=== PATIENT | male | born 1960 | race Hispanic/Latino ===

== ENCOUNTER → 2020-07-15 | Outpatient (CLI) | payer OTHER | END | disposition home or self-care (01) | LOC: SHCH 11:19 | PROVIDERS: ATTEND Internal Medicine Cardiovascular Disease | DX: R00.2 Palpitations (principal); R06.09 Other forms of dyspnea | CPT/HCPCS: 93306; 93356 ==

== ENCOUNTER → 2023-06-14 | Outpatient (CLI) | payer OTHER | END | disposition home or self-care (01) | LOC: RAH 08:53 | PROVIDERS: ATTEND Internal Medicine | DX: Q39.6 Congenital diverticulum of esophagus (principal); R14.2 Eructation; R12 Heartburn | CPT/HCPCS: 74240 ==

== ENCOUNTER → 2023-09-27 | Outpatient (CLI) | payer OTHER | END | disposition home or self-care (01) | LOC: RAH 11:00 | PROVIDERS: ATTEND Internal Medicine Gastroenterology | DX: R14.0 Abdominal distension (gaseous) (principal); R12 Heartburn; R14.2 Eructation | CPT/HCPCS: 78264; A9541 ==

== ENCOUNTER → 2024-05-11 | Outpatient (CLI) | payer MEDICARE ==
[2024-05-11] MEDS: REGADENOSON 0.4 MG/5 ML PF SYG IVP ONE (11:47)
== END | disposition home or self-care (01) ==
LOC: SHCH 07:41
PROVIDERS: ATTEND Internal Medicine Cardiovascular Disease
DX: R06.09 Other forms of dyspnea (principal); I20.9 Angina pectoris, unspecified
CPT/HCPCS: 78452; 93017; J2785; A9500 ×2

== ENCOUNTER 2024-08-05 06:35 | Emergency (ER) | payer MEDICARE ==
[~2024-08-05] VITALS: Ht 175.3 cm; Wt 83.9 kg
[2024-08-05 06:57] LABS: BASOPHILS # (AUTO) 0.02 K/uL (0.00-0.20); BASOPHILS % (AUTO) 0.3 % (0.0-5.0); EOSINOPHILS # (AUTO) 0.21 K/uL (0.00-0.70); HEMATOCRIT 44.5 % (42-54); IMMATURE GRANULOCYTE ABSOLUTE 0.02 K/uL (0-1); LYMPHOCYTES # (AUTO) 2.4 K/uL (1.0-4.8); LYMPHOCYTES % (AUTO) 33.9 % (21.0-51.0); MEAN CORPUSCULAR HEMOGLOBIN 29.3 pg (27.0-33.0); MEAN CORPUSCULAR HGB CONC 35.3 g/dL (32.0-36.0); MEAN CORPUSCULAR VOLUME 83.2 fL (79-99); MONOCYTES # (AUTO) 0.7 K/uL (0.1-1.0); MONOCYTES % (AUTO) 9.8 % (3.0-13.0); NEUTROPHILS # (AUTO) 3.8 K/uL (1.8-7.7); NEUTROPHILS % (AUTO) 52.7 % (40.0-77.0); PLATELET COUNT (AUTO) 193 K/uL (130-400); RED BLOOD CELL COUNT(AUTO) 5.35 MIL/uL (4.50-6.20); RED CELL DISTRIBUTION WIDTH 13.2 % (11.0-15.5); WHITE BLOOD COUNT (AUTO) 7.1 K/uL (4.8-10.8)
[2024-08-05 07:24] LABS: CREATININE 0.9 mg/dL (0.5-1.3); POTASSIUM 3.7 mmol/L (3.5-5.1)
--- NOTE | 2024-08-05 07:32 | ERN ---
General Chief Complaint: Chest Pain Stated Complaint: CHEST PAIN Time Seen by MD: 07:12 History of Present Illness Initial Comments 63-year-old male who presents for chest pain. Patient reports Tuesday, approximately 48 hours ago noticed a pain in the center of his chest. It does not radiate. He reports that it increases with certain movements and positioning. He does report feeling some dyspnea with the takes deep respirations. No cough or congestion. He reports that he was lifting something heavy on Tuesday and thinks it may be musculoskeletal. Patient reports that since then the pain has been worsening. It is nonexertional. He reports that he had a nuclear stress test with Dr. Sams a couple of months ago, which the patient reports was unremarkable. Allergies: Coded Allergies: No Known Drug Allergies (Unverified Allergy, Unknown, 08/05/24) Past Medical History Past Medical History: High Cholesterol Past Surgical History: Other Surgical History Other: BILATERAL INGUINAL HERNIA REPAIR ROS Dictation CONSTITUTIONAL: No chills, no fever, no weakness, no diaphoresis, no malaise. HEAD/FACE: No signs of trauma. EENT: No eye pain, no blurred vision, no tearing, no double vision, no ear pain, no ear discharge, no nose pain, no nasal congestion, no throat pain, no throat swelling, no mouth pain. RESPIRATORY: No cough, no orthopnea, no SOB, no stridor, no wheezing. CARDIOVASCULAR: Central chest pain GASTROINTESTINAL/ABDOMINAL: No abdominal pain, no constipation, no diarrhea, no nausea, no vomiting. GENITOURINARY: No abnormal discharge, no dysuria, no frequent urination, no hematuria. No complaints of pain in the genitals. MUSCULOSKELETAL: No back pain, no gout, no joint pain, no joint swelling, no muscle pain, no muscle stiffness, no neck pain. INTEGUMENTARY: No change in color, no change in hair/nails, no dryness, no lesion, no lumps, no rash. NEUROLOGICAL/PSYCH: No anxiety, not depressed, no emotional problem, no headache, no numbness, no pre-existing deficit, no history of seizures, no tremors, no weakness. HEMATOLOGIC/LYMPHATIC: Not anemic, no history of blood clots, no apparent bleeding, no bruising, glands not swollen. All Systems Negative, Except as Noted. Physical Exam Physical Exam Dictation VITAL SIGNS: Reviewed. GENERAL APPEARANCE: Alert, oriented x3, no acute distress. HEAD AND FACE: Non-traumatic. EYES: PERRL, pink conjunctivas, eyelid no trauma, anterior chamber clear. EARS: Pinnas intact and no signs of trauma or erythema. Ear canals clear and no discharge. TMs no erythema. NOSE: No discharge, no bleeding. OROPHARYNX: Mouth normal, teeth no caries, tongue pink. Pharynx clear, no erythema. Tonsils no exudates, no abscesses noted. Mucous membrane moist. NECK: Supple, non-tender, no thyromegaly, no masses, no JVD, no bruits. BREAST: Deferred. CHEST: No tenderness, no crepitus, no paradoxical movement, no retractions. LUNGS: Clear, well-ventilated, symmetric, no rales, no wheezing, no rhonchi, no stridor, good breath sounds bilaterally. HEART: Regular rate, regular rhythm, no murmur, no gallops. VASCULAR: No peripheral edema. ABDOMEN: Soft, positive bowel sounds, nondistended, no guarding, nontender, no rebound, no masses no hepatomegaly, no splenomegaly, no Moreno's sign, no hernias. RECTAL: Deferred. GENITAL: Deferred. NEUROLOGICAL: Normal speech, gross motor function intact, gross sensory function intact. MUSCULOSKELETAL: Neck nontender, full range of motion, back nontender, full range of motion. EXTREMITIES: Nontender, full range of motion. SKIN: Color pink, dry, no turgor, no rash, no lacerations, no abrasions, no contusions. LYMPHATICS: Deferred. Results Laboratory and Microbiology Lab and Micro Result Laboratory Tests Test 08/05/24 06:45 08/05/24 07:16 08/05/24 09:35 White Blood Count 7.1 K/uL (4.8-10.8) Red Blood Count 5.35 MIL/uL (4.50-6.20) Hemoglobin 15.7 g/dL (14.0-18.0) Hematocrit 44.5 % (42-54) Mean Corpuscular Volume 83.2 fL (79-99) Mean Corpuscular Hemoglobin 29.3 pg (27.0-33.0) Mean Corpuscular Hemoglobin Concent 35.3 g/dL (32.0-36.0) Red Cell Distribution Width 13.2 % (11.0-15.5) Platelet Count 193 K/uL (130-400) Mean Platelet Volume 11.0 fL (7.5-10.5) H Immature Granulocyte % (Auto) 0.3 % (0-1) Neutrophils (%) (Auto) 52.7 % (40.0-77.0) Lymphocytes (%) (Auto) 33.9 % (21.0-51.0) Monocytes (%) (Auto) 9.8 % (3.0-13.0) Eosinophils (%) (Auto) 3.0 % (0.0-8.0) Basophils (%) (Auto) 0.3 % (0.0-5.0) Neutrophils # (Auto) 3.8 K/uL (1.8-7.7) Lymphocytes # (Auto) 2.4 K/uL (1.0-4.8) Monocytes # (Auto) 0.7 K/uL (0.1-1.0) Eosinophils # (Auto) 0.21 K/uL (0.00-0.70) Basophils # (Auto) 0.02 K/uL (0.00-0.20) Absolute Immature Granulocyte (auto 0.02 K/uL (0-1) Nucleated Red Blood Cells 0.0 % (0.0-0.19) Sodium Level 141 mmol/L (136-145) Potassium Level 3.7 mmol/L (3.5-5.1) Chloride Level 104 mmol/L (101-111) Carbon Dioxide Level 30 mmol/L (21-32) Blood Urea Nitrogen 22 mg/dL (7-18) H Creatinine 0.9 mg/dL (0.5-1.3) Glomerular Filtration Rate Calc 95 mL/min (>90) Random Glucose 108 mg/dL (70-105) H Total Calcium 8.8 mg/dL (8.5-10.1) Total Creatine Kinase 60 U/L (21-232) # Troponin I High Sensitivity 9 ng/L (4-75) 10 ng/L (4-75) B-Type Natriuretic Peptide 70 pg/mL (0-100) Urine Color YELLOW (YELLOW) Urine Appearance CLEAR (CLEAR) Urine pH 6.0 (5.0-8.0) Urine Specific [place] 1.031 (1.001-1.031) Urine Protein 20 mg/dL (NEGATIVE) H Urine Glucose (UA) NEGATIVE mg/dL (NEGATIVE) Urine Ketones NEGATIVE mg/dL (NEGATIVE) Urine Occult Blood NEGATIVE (NEGATIVE) Urine Nitrate NEGATIVE (NEGATIVE) Urine Bilirubin NEGATIVE mg/dL (NEGATIVE) Urine Urobilinogen 3 mg/dL (0.2-1.0) H Urine Leukocyte Esterase NEGATIVE Eri/uL Urine RBC 0-1 /HPF (0-1) Urine WBC 0-1 /HPF (0-1) Urine Bacteria None /HPF (None Seen) D-Dimer Quantitative (PE/DVT) 477 ng/mL (0-500) Total Bilirubin 0.8 mg/dL (0.2-1.0) Direct Bilirubin 0.2 mg/dL (0.0-0.3) Aspartate Amino Transf (AST/SGOT) 24 U/L (10-37) Alanine Aminotransferase (ALT/SGPT) 17 U/L (12-78) Alkaline Phosphatase 76 U/L (50-136) C-Reactive Protein, Quantitative < 0.50 mg/L (0.5-3.0) L Total Protein 6.6 g/dL (6.0-8.3) Albumin 3.6 g/dL (3.5-5.0) Lipase 22 U/L (16-77) MDM CC: Chest pain Historian: Patient Comorbidities: DLD Ddx: ACS, PE, PTX, tampanode, etc. Vital signs: Mild hypertension otherwise stable remained stable here in the ER. Clinical exam is unremarkable. No clinical signs of heart failure swelling. Normal heart tones. EKG: Sinus rhythm rate of 76, normal axis, good R-wave progression, intervals are stable no STEMI. Independently interpreted by me. Labs (independently ordered and interpreted by me): Normal CBC, D-dimer within normal limits Basic metabolic panel is normal, liver enzymes normal, CK normal, troponin x2 normal, CRP normal, BNP normal, lipase normal. Urinalysis unremarkable. Chest x-ray per my independent interpretation shows no acute abnormalities. Patient is still continues with some chest discomfort, I did get a CT scan of the chest without contrast. It shows some calcified pericardium and gallstones but otherwise unremarkable. On re-evaluation the patient is pain-free. I did discuss with the patient that he has a heart score of three with two normal troponins, I have very low suspicion for ACS at this time in his symptoms are most consistent with a musculoskeletal type pain or noncardiac chest pain, but that said I did offer the patient admission for cardiac workup. We decided that since the patient had a nuclear stress test less than two months ago has two more troponins and normal EKG that he is safe for outpatient workup. I will recommend an NSAID as an outpatient and PCP or cardiology follow up. Patient will return to the emergency department as needed. ED Course Orders Procedure Category Date Status Time 12 Lead Ekg Tracing- EKG 08/05/24 Complete Technical 06:43 Vital Signs Per CPOE 08/05/24 Transmitted Routine 06:44 B-Type Natriuretic LAB 08/05/24 Complete Peptide 06:44 Chest 1vw RAD 08/05/24 Resulted 06:44 Oxygen By Nc/Pulse Ox CPOE 08/05/24 Transmitted 06:44 Maintain Iv CPOE 08/05/24 Transmitted 06:44 Iv Insertion CPOE 08/05/24 Transmitted 06:44 Cardiac Monitoring CPOE 08/05/24 Transmitted 06:44 Pulse Oximetry With CPOE 08/05/24 Transmitted Vs And Prn 06:44 Cbc With Differential LAB 08/05/24 Complete 06:44 Activity: Br W/Brp CPOE 08/05/24 Transmitted With Assist 06:44 Creatine Kinase, Total LAB 08/05/24 Complete 06:44 Troponin I High LAB 08/05/24 Complete Sensitivity 06:44 Urinalysis Profile LAB 08/05/24 Complete 06:44 Basic Metabolic Panel LAB 08/05/24 Complete 06:44 D-Dimer LAB 08/05/24 Complete 07:26 Crp Quantitative LAB 08/05/24 Complete 07:26 Hepatic Function Panel LAB 08/05/24 Complete 07:26 Lipase LAB 08/05/24 Complete 07:26 Troponin I High LAB 08/05/24 Complete Sensitivity 08:22 Ct Chest W/O Contrast CT 08/05/24 Resulted 10:18 Vital Signs Date Time Temp Pulse Resp B/P (MAP) Pulse Ox O2 Delivery O2 Flow Rate FiO2 08/05/24 12:47 98.2 65 17 130/73 99 Room Air* 0 08/05/24 11:18 98.2 62 16 135/74 98 Room Air* 0 08/05/24 07:45 98.6 71 14 128/71 98 Room Air* 0 08/05/24 06:50 98.6 76 16 154/86 98 Room Air* 0 21 08/05/24 06:37 99.0 74 16 156/92 99 Room Air 0 DX & DISP Disposition: Discharge Departure Impression: Primary Impression: Chest pain, non-cardiac Condition: Stable Additional Instructions: There are no concerning findings on your workup here today. Your vital signs has been stable here in the emergency department. The EKG is normal. The chest x-ray is normal. The CT scan shows calcification of the pericardium. That this is chronic based on previous imaging. This is unlikely related to your symptoms. This is often benign. You also have a gallstone in her gallbladder. If you have any biliary colic or gallstone pain, you can follow up with her primary doctor or return to the emergency department. Your blood work (CBC with differential, D-dimer, metabolic panel, liver enzymes, CK, troponin x2, BNP, lipase, urinalysis) is normal. As we discussed, your symptoms are likely musculoskeletal in nature. I recommend you take an NSAIDs such as naproxen or ibuprofen as needed for pain or discomfort. 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 Referrals: HEATHER LEWIS MD (PCP) ANASTASIA HUTCHINS DO August 05, 2024 07:32
[2024-08-05 07:33] LABS: B-TYPE NATRIURETIC PEPTIDE 70 pg/mL (0-100)
[2024-08-05 07:39] LABS: APPEARANCE,URINE CLEAR (CLEAR); BILIRUBIN,URINE NEGATIVE (NEGATIVE); COLOR,URINE YELLOW (YELLOW); GLUCOSE, URINE (UA) NEGATIVE (NEGATIVE); KETONES,URINE NEGATIVE (NEGATIVE); LEUKOCYTE ESTERASE ,URINE NEGATIVE Leu/uL (NEGATIVE); NITRATE,URINE NEGATIVE (NEGATIVE); OCCULT BLOOD,URINE NEGATIVE (NEGATIVE); PROTEIN,URINE 20 mg/dL (NEGATIVE); UROBILINOGEN,URINE 3 mg/dL (0.2-1.0)
[2024-08-05 07:44] LABS: ADD UA MICROSCOPIC YES
[2024-08-05 07:45] LABS: MUCUS,URINE FEW LPF (None Seen); RBC,URINE 0-1 /HPF (0-1); WBC,URINE 0-1 /HPF (0-1)
--- NOTE | 2024-08-05 08:06 | HMCIMG ---
PORTABLE CHEST RADIOGRAPH INDICATION: CHEST PAIN COMPARISON: 12/07/2016 FINDINGS: shingle carrier leads overlie the field of view. Heart size is normal. The pulmonary vascularity and randy appear normal. No abnormal pulmonary parenchymal opacity or consolidation identified. No significant pleural effusion noted. No pneumothorax detected. IMPRESSION: No radiographic evidence for any acute cardiopulmonary process.
[2024-08-05 09:53] LABS: ALANINE AMINOTRANSFERASE 17 U/L (12-78); ALBUMIN 3.6 g/dL (3.5-5.0); ASPARTATE AMINOTRANSFERASE 24 U/L (10-37); BILIRUBIN,DIRECT 0.2 mg/dL (0.0-0.3); BILIRUBIN,TOTAL 0.8 mg/dL (0.2-1.0); TOTAL PROTEIN, SERUM 6.6 g/dL (6.0-8.3)
--- NOTE | 2024-08-05 11:19 | HMCIMG ---
CT CHEST WITHOUT CONTRAST INDICATION: Central chest tenderness TECHNIQUE: Routine axial images using 5 mm slice thickness were acquired from the lung apices to the bases without the administration of IV contrast.Coronal and sagittal reformatted images acquired for interpretation. CT was performed with one or more of the following dose reduction techniques: Automated exposure control, adjustment of the mA and/or kV according to patient size, or use of iterative reconstruction technique. COMPARISON: None FINDINGS: The heart size is normal. No pericardial effusion noted. Extensive pericardial calcifications. The visualized great vessels and thoracic aorta are within normal limits. The trachea and airways are patent. No evidence for pulmonary nodule, consolidation, cavitary lesion, or other abnormal pulmonary parenchymal opacity. No axillary, hilar, or mediastinal lymphadenopathy. No pleural effusion or pneumothorax identified. 2.0 cm peripherally having calcific gallstone. Intact sternum and ribs. IMPRESSION: Extensive pericardial calcifications, without pericardial fluid or evidence for any other acute cardiopulmonary process, and intact sternum and ribs. Cholelithiasis
[2024-08-05 12:47] VITALS: BP 130/73; PULSE 65; RESP 17; TEMP 98.3; O2SAT 99
--- NOTE | 2024-08-05 14:15 | EKG ---
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
== END 2024-08-05 12:57 | disposition home or self-care (01) ==
LOC: EDH 06:35
DX: R07.89 Other chest pain (principal); E78.00 Pure hypercholesterolemia, unspecified
CPT/HCPCS: 36415; 71045; 71250; 80048; 80076; 81001; 82550; 83690; 83880; 84484; 85025; 85378; 86140; 93005; 99285

== ENCOUNTER → 2024-11-28 | Outpatient (CLI) | payer MEDICARE ==
[~2024-11-28] MED LIST: GADOTERATE MEGLUMINE 10 MMOL/20 ML VIAL IV ONE
--- NOTE | 2024-11-29 10:48 | HMCIMG ---
EXAM: MR Brain and IAC without and with IV Contrast. CLINICAL HISTORY: Bilateral hearing loss. TECHNIQUE: Multiplanar multi-sequence MRI of the brain and IAC without and with IV Contrast. COMPARISON: None provided. FINDINGS: BRAIN: No abnormal parenchymal signal is present. No acute intracranial abnormality, specifically cortical infarction, hemorrhage, mass, or mass effect. No hydrocephalus. No abnormal extra-axial fluid collection is present. The marrow signal within the skull base and calvarium is intact. The paranasal sinuses are clear. IAC: The cerebellopontine angles are CSF-filled. The internal auditory canal bilaterally is normal in signal. The seventh and eighth nerve bundles are intact. A vascular loop is seen in close contact with the left 7th and 8th nerve bundles within the internal auditory canal. Inner ear structures are normal. Mastoid air cells demonstrate no abnormal signal. IMPRESSION: No acute intracranial abnormality or mass. The bilateral cerebellopontine angles, right 7th and 8th cranial nerve bundles, internal auditory canals, and bilateral inner ear structures are within normal limits. A vascular loop is seen in close contact with the left 7th and 8th nerve bundles within the internal auditory canal. /Boyd
== END | disposition home or self-care (01) ==
LOC: RAH 10:22
PROVIDERS: ATTEND Otolaryngology
DX: H91.8X3 Other specified hearing loss, bilateral (principal)
CPT/HCPCS: 70553; A9575